=== PATIENT | male | born 1970 | race Caucasian/White ===

== ENCOUNTER 2019-04-03 13:40 | Emergency (ER) | payer OTHER ==
[~2019-04-03] VITALS: Ht 180.3 cm; Wt 115.2 kg
[2019-04-03 14:00] LABS: ABSOLUTE NEUTROPHILS 5.3 thou/uL (1.4-8.2); BASOPHILS 0.6 % (0.0-2.0); EOSINOPHILS 2.3 % (0.0-3.0); HEMATOCRIT 47.4 % (42.0-52.0); HEMOGLOBIN 16.4 gm/dL (14.0-18.0); LYMPHOCYTES 40.5 % (24.0-44.0); MCH 28.4 pg (26.0-34.0); MCHC 34.5 g/dL (28.0-37.0); MCV 82.3 fL (80.0-100.0); MONOCYTES 9.6 % (1.0-8.0); PLATELET COUNT 263 thou/uL (150-400); RBC 5.77 mil/uL (4.50-6.00); RDW 13.7 % (10.5-14.5); WBC 11.3 thou/uL (4.0-11.0)
[2019-04-03 14:14] LABS: ANION GAP 9 mmol/L (7-16); BUN 16 mg/dL (7-18); CALCIUM 9.5 mg/dL (8.5-10.1); CHLORIDE 98 mmol/L (98-107); CO2 27 mmol/L (21-32); GLUCOSE 321 mg/dL (74-106); SODIUM 134 mmol/L (136-145)
[2019-04-03 14:17] LABS: POTASSIUM 4.1 mmol/L (3.5-5.1)
[2019-04-03 14:20] LABS: TROPONIN-I <0.06 ng/mL (<0.06)
--- NOTE | 2019-04-03 15:29 | EKG ---
[place] [address] [address] [place] [address] ELECTROCARDIOGRAM REPORT Name: URMILA WALKER Room #: REG MClarisseRClarisse#: [id number] Admission: 04/03/19 Attend Phys: Discharge: Date of : 66 Report #: [id number] THIS REPORT FOR: //name// [facility] ED Test Date: 2019-04-03 Test Time: 13:46:26 Pat Name: URMILA WALKER Department: Room: Gender: Med Aide: : 1970 Requested By: Rodrigue Hartman Order Number: [id number] MD: Bryan Weeks Measurements Intervals [place] Rate: 189 P: 0 RI: QRS: 4 QRSD: 97 T: -1 QT: 277 QTc: 492 Interpretive Statements Supraventricular tachycardia ST depression, probably rate related No previous ECG available for comparison Electronically Signed On 04-03-2019 15:29:37 CDT by Bryan Weeks [email or web address] <ELECTRONICALLY SIGNED> By: Bryan Weeks MD, [facility] 04/03/19 1529 1346 1346 Bryan Weeks MD, FACC /EPI
[2019-04-03] MEDS ORDERED: GLIPIZIDE 10 MG10 MG PO (15:34)
[2019-04-03] MEDS ORDERED: LOPRESSOR25 PO (15:48)
[2019-04-03 16:12] VITALS: BP 122/69
--- NOTE | 2019-04-04 16:11 | EKG ---
[address] [employer] 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[place] : 1970 Requested By: Rodrigue Hartman Order Number: [id number] MD: Abdiaziz Guajardo Measurements Intervals [place] Rate: 111 P: 43 WA: 180 QRS: -4 QRSD: 84 T: 14 QT: 330 QTc: 449 Interpretive Statements Sinus tachycardia Paired ventricular premature complexes Compared to ECG 04/03/2019 13:46:26 Ventricular premature complex(es) now present Supraventricular tachycardia no longer present ST (T wave) deviation no longer present Electronically Signed On 04-04-2019 16:11:12 CDT by Abdiaziz Guajardo [email or web address] <ELECTRONICALLY SIGNED> By: Abdiaziz Guajardo MD 04/04/19 1611 1403 1403 Abdiaziz Guajardo MD /EPI
== END 2019-04-03 16:35 | disposition home or self-care (01) ==
LOC: ER 13:40
PROVIDERS: Emergency Medicine
DX: I47.1 Supraventricular tachycardia (principal); R42 Dizziness and giddiness; E11.9 Type 2 diabetes mellitus without complications; Z79.899 Other long term (current) drug therapy